=== PATIENT | female | born 1985 | race Two or more races ===

== ENCOUNTER 2019-06-23 09:00 | Emergency (ER) | payer SELFPAY ==
[2019-06-23 09:10] VITALS: BP 112/64
[2019-06-23 09:58] LABS: AMORPHOUS SEDIMENT,URINE TRACE /HPF; APPEARANCE,URINE SLIGHTLY-CLOUDY; BILIRUBIN,URINE NEGATIVE (NEGATIVE); COLOR,URINE YELLOW; GLUCOSE, URINE NEGATIVE (NEGATIVE); KETONES,URINE NEGATIVE (NEGATIVE); LEUKOCYTE ESTERASE,URINE LARGE (NEGATIVE); NITRITE,URINE NEGATIVE (NEGATIVE); PROTEIN,URINE NEGATIVE (NEGATIVE); UROBILINOGEN,URINE NEGATIVE mg/dL (<2.0)
--- NOTE | 2019-06-23 10:02 | ER Document Report ---
ED General - General Chief Complaint: Pain With Urination Stated Complaint: VAGINAL ITCHING Time Seen by Provider: 06/23/19 10:02 - HPI Patient complains to provider of: Burning with urination Notes: 34-year-old female 7 months presents with burning with urination foul- smelling urine. Patient denies fever chills back pain or any other symptoms. Pain is 6/10 burning in nature without radiation nothing makes it better or worse. - Related Data Allergies/Adverse Reactions: Penicillins Allergy (Verified 06/23/19 09:33) Past Medical History - General Last Menstrual Period: 12/02/2018 - Social History Smoking Status: Never Smoker Chew tobacco use (# tins/day): No Frequency of alcohol use: None Drug Abuse: None Family History: None Patient has suicidal ideation: No Patient has homicidal ideation: No Review of Systems - Review of Systems Notes: REVIEW OF SYSTEMS: CONSTITUTIONAL: -fevers, -chills EENT: -eye pain, -difficulty swallowing, -nasal congestion CARDIOVASCULAR: -chest pain, -syncope. RESPIRATORY: -cough, -SOB GASTROINTESTINAL: -abdominal pain, -nausea, -vomiting, -diarrhea GENITOURINARY: positive dysuria, -hematuria MUSCULOSKELETAL: -back pain, -neck pain SKIN: -rash or skin lesions. HEMATOLOGIC: -easy bruising or bleeding. LYMPHATIC: -swollen, enlarged glands. NEUROLOGICAL: -altered mental status or loss of consciousness, -headache, - neurologic symptoms PSYCHIATRIC: -anxiety, -depression. ALL OTHER SYSTEMS REVIEWED AND NEGATIVE. Physical Exam - Vital signs Vitals: Temp Pulse Resp BP Pulse Ox 98.0 F 87 16 112/64 100 06/23/19 09:10 06/23/19 09:10 06/23/19 09:10 06/23/19 09:10 06/23/19 09:10 - Notes Notes: PHYSICAL EXAMINATION: GENERAL: Well-appearing, well-nourished and in no acute distress. HEAD: Atraumatic, normocephalic. EYES: Pupils equal round and reactive to light, extraocular movements intact, sclera anicteric, conjunctiva are normal. ENT: nares patent, oropharynx clear without exudates. Moist mucous membranes. NECK: Normal range of motion, supple without lymphadenopathy LUNGS: Breath sounds clear to auscultation bilaterally and equal. No wheezes rales or rhonchi. HEART: Regular rate and rhythm without murmurs ABDOMEN: Soft, nontender, normoactive bowel sounds. No guarding, no rebound. No masses appreciated. EXTREMITIES: Normal range of motion, no pitting or edema. No cyanosis. NEUROLOGICAL: Cranial nerves grossly intact. Normal speech, normal gait. Normal sensory and motor exams. PSYCH: Normal mood, normal affect. SKIN: Warm, Dry, normal turgor, no rashes or lesions noted. Course - Re-evaluation Re-evalutation: 06/23/19 10:12 Pleasant 34-year-old female presents plaints. heart rate 142. Patient is well-appearing afebrile. Urine shows infection, will initiate Macrobid therapy. Discharged home follow- up with MATCH UP PERSON. Urine culture pending at this time. - Vital Signs Vital signs: Temp Pulse Resp BP Pulse Ox 98.0 F 87 16 112/64 100 06/23/19 09:10 06/23/19 09:10 06/23/19 09:10 06/23/19 09:10 06/23/19 09:10 - Laboratory Laboratory results interpreted by me: 06/23/19 09:44 Urine Blood SMALL H Ur Leukocyte Esterase LARGE H Discharge - Discharge Clinical Impression: UTI (urinary tract infection) Qualifiers: Urinary tract infection type: acute cystitis Hematuria presence: without hematuria Qualified Code(s): N30.00 - Acute cystitis without hematuria Condition: Stable Disposition: HOME, SELF-CARE Instructions: Urinary Tract Infection ([facility]) Additional Instructions: See your MATCH UP PERSON Prescriptions: Nitrofurantoin/Nitrofuran Mac [Macrobid 100 mg Capsule] 1 tab PO BID #20 capsule
== END 2019-06-23 10:35 | disposition home or self-care (01) ==
LOC: ER 09:00
DX: N30.00 Acute cystitis without hematuria (principal); L29.9 Pruritus, unspecified; Z88.0 Allergy status to penicillin
CPT/HCPCS: 81001; 87086; 87088

== ENCOUNTER 2019-07-04 13:46 | Outpatient (CLI) | payer SELFPAY ==
[2019-07-04] MEDS ORDERED: HYDROXYZINE PAMOATE 50 MG CAPSULE PO ONE (14:30)
[2019-07-04] MEDS ORDERED: HYDROXYZINE PAMOATE 50 MG CAPSULE ONE (14:33)
[2019-07-04 14:39] LABS: BACTERIA (WET MOUNT) 4+ BACTERIA SEEN; EPITHELIALS (WET MOUNT) 4+ EPITHELIALS SEEN; RBCS (WET MOUNT) 1+ RBCS SEEN; T.VAGINALIS (WET MOUNT) NO TRICHOMONAS SEEN; WBCS (WET MOUNT) 3+ WBCS SEEN; YEAST (WET MOUNT) NO YEAST SEEN
[2019-07-04 14:48] LABS: APPEARANCE,URINE SLIGHTLY-CLOUDY; BILIRUBIN,URINE NEGATIVE (NEGATIVE); COLOR,URINE YELLOW; GLUCOSE, URINE NEGATIVE (NEGATIVE); KETONES,URINE NEGATIVE (NEGATIVE); LEUKOCYTE ESTERASE,URINE NEGATIVE (NEGATIVE); NITRITE,URINE NEGATIVE (NEGATIVE); PROTEIN,URINE NEGATIVE (NEGATIVE); URINE SPECIFIC GRAVITY 1.012
[2019-07-04 14:57] LABS: URINE AMPHETAMINES SCREEN NEGATIVE; URINE BARBITURATES SCREEN NEGATIVE; URINE BENZODIAZEPINES SCREEN NEGATIVE; URINE COCAINE SCREEN NEGATIVE; URINE MARIJUANA (THC) SCREEN NEGATIVE; URINE METHADONE SCREEN NEGATIVE; URINE PHENCYCLIDINE SCREEN NEGATIVE
[2019-07-04 16:08] LABS: CHLAM PCR NOT DETECTED (NOT DETECT)
--- NOTE | 2019-07-04 18:05 | RADIOLOGY REPORT (SQ) ---
EXAM DESCRIPTION: U/S OB 14+ TA/1 GEST W/DOPPLER COMPLETED DATE/TIME: 07/04/2019 4:56 pm REASON FOR STUDY: limited PNC COMPARISON: None. TECHNIQUE: Static and Dynamic grayscale imaging performed of gravid uterus using transabdominal appr oach. Additional selected color Doppler and spectral images recorded. All stored on PACS. LIMITATIONS: None. FINDINGS: FETUSES SEEN:1 EGA: 29 weeks 6 days Calculated using BPD,FL,HC,AC documented on images. No discrepancy with clinica l dates. CARTER: 09/13/2019 EFW: 1402+/- 207 grams PERCENTILE: Not calculated. LV P: 8.2 cm PLACENTA: Anterior GRADE: I PRESENTATION: Cephalic. ANATOMY: HEART RATE: 147 beats per minute. FOUR CHAMBER HEART: Visualized. THREE VESSEL CORD: Yes. CORD INSERTION: Visualized. KIDNEYS AND BLADDER: Mild hydronephrosis. Dilated renal pelves bilaterally measures 5.1 mm. The uri nary bladder did not empty during the study. STOMACH: Visualized. Appears normal. SPINE: Normal as visualized. BRAIN AND LATERAL VENTRICLES: Visualized. Appear normal. OTHER: No other significant finding. MATERNAL ADNEXA: Maternal ovaries not visualized. CERVICAL LENGTH: 3.2 cm. Closed. OTHER: No other significant finding. IMPRESSION: LIVING INTRAUTERINE . ESTIMATED GESTATIONAL AGE 29 weeks 6 days. Bilateral hydronephrosis. The urinary bladder did not empty during the study. Trimester of : Third trimester - 28 weeks to delivery. TECHNICAL DOCUMENTATION: JOB ID: [id number] [employer]- All Rights Reserved Reading location - IP/workstation name: [email or web address]
== END 2019-07-04 16:50 | disposition home or self-care (01) ==
LOC: LC 13:46
PROVIDERS: ATTEND Obstetrics & Gynecology Gynecology
PROC: 4A1HXCZ Monitoring of Products of Conception, Cardiac Rate, External Approach (ICD-10-PCS; principal; 2019-07-04)
DX: O99.89 Other specified diseases and conditions complicating pregnancy, childbirth and the puerperium (principal); N13.30 Unspecified hydronephrosis; O09.33 Supervision of pregnancy with insufficient antenatal care, third trimester; Z3A.29 29 weeks gestation of pregnancy
CPT/HCPCS: 59899; 36415; 87210; 86762; 86592; 81001; 87340; 86701; 80307; 87491; 87591; 76805; 93976; J3490; 87086

== ENCOUNTER → 2019-07-07 | Outpatient (CLI) | payer SELFPAY ==
--- NOTE | 2019-07-07 15:29 | RADIOLOGY REPORT (SQ) ---
EXAM DESCRIPTION: U/S OB 14+ TRNABD 1GES W/O DOP COMPLETED DATE/TIME: 07/07/2019 2:39 pm REASON FOR STUDY: Z34.83 ENCOUNTER FOR SUPRVSN OF NORMAL , THIRD TRIMESTER Z34.83 ENCOUNTE R FOR SUPRVSN OF NORMAL , THIRD TRIM COMPARISON: 07/04/2019 OB ultrasound TECHNIQUE: Static and Dynamic grayscale imaging performed of gravid uterus using transabdominal appr oach. Additional selected color Doppler and spectral images recorded. All stored on PACS. LIMITATIONS: None. FINDINGS: FETUSES SEEN:1 EGA: 31 weeks 1 day Calculated using BPD,FL,HC,AC documented on images. CARTER: 09/07/2019 EFW: 1,750 grams PERCENTILE: Not calculated BRIANNA: 29 cm, polyhydramnios. Level 2 ultrasound recommended for followup PLACENTA: Anterior fundal GRADE: I PRESENTATION: Cephalic. ANATOMY: HEART RATE: 132 beats per minute. FOUR CHAMBER HEART: Visualized. THREE VESSEL CORD: Yes. CORD INSERTION: Visualized. KIDNEYS AND BLADDER: Prominence of the bilateral renal pelvises, AP diameter 6 mm. bladd er did not empty during the scan. Moderate bladder dilatation. STOMACH: Visualized. Appears normal. SPINE: Normal as visualized. BRAIN AND LATERAL VENTRICLES: Visualized. Appear normal. OTHER: No other significant finding. MATERNAL ADNEXA: Maternal ovaries not visualized. CERVICAL LENGTH: 3 cm in length Closed. OTHER: No other significant finding. IMPRESSION: LIVING INTRAUTERINE . ESTIMATED GESTATIONAL AGE 31 weeks 1 day There is polyhydramnios. Prominence of the renal pelvises and bladder. Level 2 ultra sound indicated for follow-up Trimester of : Third trimester - 28 weeks to delivery. TECHNICAL DOCUMENTATION: JOB ID: [id number] [employer]- All Rights Reserved Reading location - IP/workstation name: [email or web address]
== END ==
LOC: RAD 13:09
PROVIDERS: ATTEND Midwife
DX: O40.3XX0 Polyhydramnios, third trimester, not applicable or unspecified (principal); Z3A.31 31 weeks gestation of pregnancy
CPT/HCPCS: 76805

== ENCOUNTER 2019-09-06 11:40 | Outpatient (CLI) | payer OTHER ==
[2019-09-06 14:07] LABS: APPEARANCE,URINE SLIGHTLY-CLOUDY; BILIRUBIN,URINE NEGATIVE (NEGATIVE); COLOR,URINE YELLOW; GLUCOSE, URINE NEGATIVE (NEGATIVE); KETONES,URINE NEGATIVE (NEGATIVE); LEUKOCYTE ESTERASE,URINE SMALL (NEGATIVE); NITRITE,URINE NEGATIVE (NEGATIVE); PROTEIN,URINE NEGATIVE (NEGATIVE); UROBILINOGEN,URINE NEGATIVE mg/dL (<2.0)
[2019-09-06 14:25] LABS: URINE AMPHETAMINES SCREEN NEGATIVE; URINE BARBITURATES SCREEN NEGATIVE; URINE BENZODIAZEPINES SCREEN NEGATIVE; URINE COCAINE SCREEN NEGATIVE; URINE MARIJUANA (THC) SCREEN NEGATIVE; URINE METHADONE SCREEN NEGATIVE; URINE PHENCYCLIDINE SCREEN NEGATIVE
--- NOTE | 2019-09-06 15:45 | RADIOLOGY REPORT (SQ) ---
EXAM DESCRIPTION: U/S OB LIMITED COMPLETED DATE/TIME: 09/06/2019 3:35 pm REASON FOR STUDY: growth and eval of bladder COMPARISON: 07/07/2019 TECHNIQUE: Limited transabdominal grayscale ultrasound for evaluation of specific requested obstetri evgeny parameters. LIMITATIONS: None. FINDINGS: CERVICAL LENGTH: 2.8 cm. Closed. BRIANNA: 8.1 cm. FHR: 126 beats per minute. PRESENTATION: Cephalic. PLACENTA: Anterior location. ANATOMY: Not assessed OTHER: Estimated gestational age is 38 weeks 4 days. IMPRESSION: LIMITED OBSTETRICAL ULTRASOUND WITH MEASURED PARAMETERS DELINEATED ABOVE. Trimester of : Third trimester - 28 weeks to delivery. TECHNICAL DOCUMENTATION: JOB ID: [id number] [employer]- All Rights Reserved Reading location - IP/workstation name: [email or web address]
--- NOTE | 2019-09-06 15:47 | RADIOLOGY REPORT (SQ) ---
EXAM DESCRIPTION: U/S PROFILE W/O STRESS COMPLETED DATE/TIME: 09/06/2019 3:35 pm REASON FOR STUDY: iup polyhydramnious COMPARISON: None. TECHNIQUE: Limited zaragoza-scale realtime and static images of the fetus to measure specified parameter s. LIMITATIONS: None. FINDINGS: HEART RATE: 141 beats per minute. BRIANNA: 8.1 cm. BREATHING MOVEMENT: 2 points. MOVEMENT: 2 points. POSTURE AND TONE: 0 points. QUALITATIVE BRIANNA: 2 points. OTHER: No other significant finding. IMPRESSION: BIOPHYSICAL PROFILE: 03/12. Trimester of : Third - 28 weeks to delivery COMMENT: BREATHING MOVEMENTS: 2 POINTS: PRESENT 0 POINTS: ABSENT MOTION: 2 POINTS: PRESENT 0 POINTS: ABSENT TONE: 2 POINTS: PRESENT 0 POINTS: ABSENT AMNIOTIC FLUID VOLUME: 2 POINTS: LARGEST POCKET GREATER THAN 2 CM DEPTH. 0 POINTS: NO POCKET OF 2 CM. TECHNICAL DOCUMENTATION: JOB ID: [id number] [employer]- All Rights Reserved Reading location - IP/workstation name: [email or web address]
--- NOTE | 2019-09-06 18:53 | Non Stress Test Report ---
Non Stress Test Datetime Report Generated by CPN: 09/06/2019 18:53 DEMOGRAPHIC EGA NST: 39.0 INDICATION Indication for Study (NST) Other: IUP @ 39.0 MONITORING Monitor Explained: Monitor Explained; Test Explained; Patient Verbalized Understanding Time on Monitor: 09/06/2019 12:20 Time off Monitor: 09/06/2019 14:15 NST Duration: 115 NST INTERVENTIONS NST Interventions: PO Hydration; Reposition Patient Physician Notified NST: Dr. Bailon BABY A: [id number] BABY A Movement : Present Contraction Frequency : 0 FHR Baseline : 120 Accelerations : 15X15 Variability : Moderate 6-25bpm NST Review: Meets Criteria for Reactive NST NST Review and Verified By : Arlyn camp RNC NST Results: Reactive NST REPORT Report Trigger: Send Report
== END 2019-09-06 17:53 | disposition home or self-care (01) ==
LOC: LC 11:40
PROVIDERS: ATTEND Obstetrics & Gynecology
PROC: 4A1HXCZ Monitoring of Products of Conception, Cardiac Rate, External Approach (ICD-10-PCS; principal; 2019-09-06)
DX: O47.1 False labor at or after 37 completed weeks of gestation (principal); O40.3XX0 Polyhydramnios, third trimester, not applicable or unspecified; O09.523 Supervision of elderly multigravida, third trimester; Z3A.39 39 weeks gestation of pregnancy
CPT/HCPCS: 59025; 76815; 76819; 80307; 81001

== ENCOUNTER 2019-09-14 05:14 | Inpatient (IN) | payer MEDICAID, OTHER ==
[2019-09-14] MEDS ORDERED: OXYTOCIN 10 UNIT/ML VIAL ONE (05:55)
[2019-09-14] MEDS ORDERED: MISOPROSTOL 0.2 MG TABLET ONE (05:55)
[2019-09-14] MEDS ORDERED: OXYTOCIN/NORMAL SALINE 20 UNIT/1,000 ML RTUINJ ONE (05:56)
[2019-09-14] MEDS ORDERED: LIDOCAINE 1% INJ-PF (10 MG/ML) 30 ML SDV ONE (05:56)
--- NOTE | 2019-09-14 06:37 | Admission Physical ---
Datetime Report Generated by CPN: 09/14/2019 06:36 CURRENT ADMISSION Chief Complaint: Uterine Contractions Admit Impression : Term, Intrauterine ; Active Labor Admit Plan: Admit to Unit; Initiate Labor Protocol ALLERGIES Medication Allergies: Yes Medication Allergies: Penicillins (09/06/2019) Latex: No Latex Allergies OBSTETRICAL HISTORY EDC: 09/13/2019 00:00 : 3 Para: 2 Term: 2 : 0 SAB: 0 IAB: 0 Ectopic: 0 Livin Cesareans: 0 VBACs: 0 Multiple Births: 0 Gestational Diabetes: No Rh Sensitization: No Incompetent Cervix: No PATTI: No Infertility: No ART Treatment: No Uterine Anomaly: No IUGR: No Hx Previous C/S: No Macrosomia: No Hx Loss/Stillborn: No PIH: No Hx : No Placenta Previa/Abruption: No Depression/PP Depression: Yes PTL/PROM: No Post Hemorrhage: No Current Procedures: Ultrasound; NST Obstetrical History Comments: G1- G2- G3- current LPNC Polyhydramnios, bladder dilation SEE RECORDS Alcohol: No Marijuana : No Cocaine: No Other Illicit Drugs: No Cigarettes: Never Smoker. [id number] MEDICAL HISTORY Diabetes: No Blood Transfusion: No Pulmonary Disease (Asthma, TB): No Breast Disease: No Hypertension: No Android Developer Surgery: No Heart Disease: No Hosp/Surgery: Yes Autoimmune Disorder: No Anesthetic Complications: No Kidney Disease: Yes Abnormal Pap Smear: No Neuro/Epilepsy: No Psychiatric Disorders: No Other Medical Diseases: No Hepatitis/Liver Disease: No Significant Family History: No Varicosities/Phlebitis: No Trauma/Violence : No Thyroid Dysfunction: No Medical History Comments: Gastritis, issues with colon IBS CHILDBIRTH INFECTIOUS HISTORY Gonorrhea: No Genital Herpes: No Chlamydia: No Tuberculosis: No Syphilis: No Hepatitis: No HIV/AIDS Exposure: No Rash or Viral Illness: No HPV: No PHYSICAL EXAM General: Normal HEENT: Normal Neurologic: Normal Thyroid: Normal Heart: Normal Lungs: Normal Breast: Normal Back: Normal Abdomen: Normal Genitourinary Exam: Normal Extremities: Normal DTRs: Normal Pelvic Type: Adequate Vital Signs: Reviewed VAGINAL EXAM Dilatation: 8 Effacement: 90 Station: -2 Contraction Comments: contractions Q 2-3 MEMBRANES Pooling: Negative Membranes: Intact FETUS A EGA: 40.1 Monitoring: External US FHR- Baseline: 130 Variability: Moderate 6-25bpm Accelerations: 15X15 Decelerations: None FHR Category: Category I Presentation: Vertex Admit Comment: at 40.1 wks EGA in acitve labor -Admit to LDR -IVF and NPO -CEFM and toco -GBS negative -Hx prior x2 -Anticipate INFORMED CONSENT Informed Consent Obtained: Vaginal Delivery; Section Delivery; Vacuum/Forceps Assist; Risks, Benefits and Alternatives Discussed Signature: with User ID: [email or web address] : with User ID: [email or web address]
[2019-09-14] MEDS ORDERED: DIPHENHYDRAMINE HCL 50 MG/ML VIAL ONE (06:43)
[2019-09-14 06:44] LABS: APPEARANCE,URINE CLOUDY; BILIRUBIN,URINE NEGATIVE (NEGATIVE); COLOR,URINE YELLOW; GLUCOSE, URINE NEGATIVE (NEGATIVE); KETONES,URINE NEGATIVE (NEGATIVE); LEUKOCYTE ESTERASE,URINE LARGE (NEGATIVE); NITRITE,URINE NEGATIVE (NEGATIVE); PROTEIN,URINE NEGATIVE (NEGATIVE); URINE SPECIFIC GRAVITY 1.008; UROBILINOGEN,URINE NEGATIVE mg/dL (<2.0)
[2019-09-14 06:59] LABS: URINE AMPHETAMINES SCREEN NEGATIVE; URINE BARBITURATES SCREEN NEGATIVE; URINE BENZODIAZEPINES SCREEN NEGATIVE; URINE COCAINE SCREEN NEGATIVE; URINE MARIJUANA (THC) SCREEN NEGATIVE; URINE METHADONE SCREEN NEGATIVE; URINE PHENCYCLIDINE SCREEN NEGATIVE
[2019-09-14] MEDS ORDERED: PSEUDOEPHEDRINE HCL 30 MG TABLET PO PRN (08:02)
[2019-09-14] MEDS ORDERED: PROMETHAZINE HCL INJ 25 MG/1 ML VIAL IV PRN (08:02)
[2019-09-14] MEDS ORDERED: MEASLES,MUMPS&RUBELLA VACC/PF 0.5 ML VIAL SUBCUT PRN (08:02)
[2019-09-14] MEDS ORDERED: NA PHOS,M-B/NA PHOS,DI-BA (ADULT) 133 ML ENEMA PR PRN (08:02)
[2019-09-14] MEDS ORDERED: DIPHENHYDRAMINE HCL 25 MG CAPSULE PO PRN (08:02)
[2019-09-14] MEDS ORDERED: BENZOCAINE/MENTHOL AEROSOL SPRAY 56 ML TOP PRN (08:02)
[2019-09-14] MEDS ORDERED: MAGNESIUM HYDROXIDE SUSP 30 ML UDCUP PO PRN (08:02)
[2019-09-14] MEDS ORDERED: PROMETHAZINE HCL 25 MG SUPP.RECT PR PRN (08:02)
[2019-09-14] MEDS ORDERED: HYDROCODONE/ACETAMINOPHEN 5-325 MG TABLET PO PRN (08:02)
[2019-09-14] MEDS ORDERED: DIBUCAINE 1% OINTMENT 56 GM TP PRN (08:02)
[2019-09-14] MEDS ORDERED: DIPH/PERTUSS(ACELL)/TETANUS VAC/PF 0.5 ML SYR (>=10YO) IM PRN (08:02)
[2019-09-14] MEDS ORDERED: OXYTOCIN/NORMAL SALINE 20 UNIT/1,000 ML RTUINJ IV PRN (08:02)
[2019-09-14] MEDS ORDERED: ACETAMINOPHEN 650 MG SUPP.RECT PR PRN (08:02)
[2019-09-14] MEDS ORDERED: GLYCERIN/WITCH HAZEL LEAF 1 EACH MED..WIPE TP PRN (08:02)
[2019-09-14] MEDS ORDERED: PROMETHAZINE HCL 25 MG TABLET PO PRN (08:02)
[2019-09-14 08:10] LABS: ABSOLUTE LYMPHOCYTES (AUTO) 1.6 10^3/uL (0.5-4.7); ABSOLUTE MONOCYTES (AUTO) 0.6 10^3/uL (0.1-1.4); ABSOLUTE NEUT (AUTO) 7.3 10^3/uL (1.7-8.2); BASOPHILS % (AUTO) 0.3 % (0-2); EOSINOPHILS % (AUTO) 0.5 % (0-6); HEMATOCRIT 32.6 % (36.0-47.0); HEMOGLOBIN 10.8 g/dL (12.0-15.5); LYMPHOCYTES % (AUTO) 16.6 % (13-45); MEAN CORPUSCULAR HEMOGLOBIN 26.7 pg (27.0-33.4); MEAN CORPUSCULAR HGB CONC 33.1 g/dL (32.0-36.0); MEAN CORPUSCULAR VOLUME 81 fl (80-97); MONOCYTES % (AUTO) 5.9 % (3-13); PLATELET COUNT 229 10^3/uL (150-450); RED BLOOD COUNT 4.04 10^6/uL (3.72-5.28); RED CELL DISTRIBUTION WIDTH 14.9 % (11.5-14.0); SEGMENTED NEUTROPHILS % (AUTO) 76.7 % (42-78); TOTAL CELLS COUNTED % (AUTO) 100 %; WHITE BLOOD COUNT 9.5 10^3/uL (4.0-10.5)
[2019-09-14] MEDS ORDERED: IBUPROFEN 800 MG TABLET ONE (08:47)
[2019-09-14] MEDS: IBUPROFEN 800 MG TABLET PO SCH ×3 (08:48→22:13)
--- NOTE | 2019-09-14 10:24 | Delivery Summary ---
Del Sum A-C Datetime Report Generated by CPN: 09/14/2019 10:24 DELIVERY PERSONNEL DELIVERY PERSONNEL: [id number] Delivery Doctor:: Vi Bailon MD Labor and Delivery Nurse:: Vangie Amin RN Nursery Nurse:: Chastity Cortez RN Infectious Waste Technician/ROTARY DRIER OPERATOR: Elo Green, ST MATERNAL INFORMATION Delivery Anesthesia: None Medications After Delivery: Pitocin Bolus-Please Comment Meds After Delivery Comment: Pitocin 20 units/ 1000 ml NSS Maternal Complications: Precipitous Labor (<3hrs) Provider Comments: After delivery of the head, a tight nuchal cord was noted but loosened enough to reduce. The shoulders and rest of the body then followed easily. Cord clamping delayed for 30 seconds as was vigorous. Mother and both stable. LABOR SUMMARY EDC: 09/13/2019 00:00 No. Babies in Womb: 1 Attempted: No Labor Anesthesia: None LABOR INFORMATION Reason for Induction: Not Applicable Onset of Labor: 09/14/2019 05:30 Complete Dilatation: 09/14/2019 07:00 Oxytocin: N/A Group B Beta Strep: Negative Antibiotics # of Doses: 0 Antibiotics Time of Last Dose: N/A Name of Antibiotic Given: N/A Steroids Given: None Reason Steroids Not Administered: Not Applicable MEMBRANES Membranes Rupture Method: Artificial Rupture of Membranes: 09/14/2019 06:03 Length of Rupture (hr): 1.00 Amniotic Fluid Color: Clear Amniotic Fluid Amount: Moderate Amniotic Fluid Odor: Normal STAGES OF LABOR Stage 1 hr: 1 Stage 1 min: 30 Stage 2 hr: 0 Stage 2 min: 3 Stage 3 hr: 0 Stage 3 min: 5 Total Time in Labor hr: 1 Total Time in Labor min: 38 VAGINAL DELIVERY Episiotomy: None Laceration #1: Perineal Laceration Extension #1: First Degree Laceration Repair: Yes Laceration Repair Note: Repaired in layered closure with 2-0 chromic Sponge Count Correct: Yes Sharps Count Correct: Yes CSECTION DELIVERY Primary Indication: N/A Secondary Indication: N/A CSection Incidence: N/A Labor: N/A Elective: N/A CSection Incision: N/A BABY A INFORMATION Delivery Date/Time: 09/14/2019 07:03 Method of Delivery: Vaginal Born in Route : No : N/A Forceps: N/A Vacuum Extraction: N/A Shoulder Dystocia : No PRESENTATION/POSITION BABY A Presentation: Cephalic Cephalic Presentation: Vertex Breech Presentation: N/A PLACENTA INFORMATION BABY A Placenta Delivery Time : 09/14/2019 07:08 Placenta Method of Delivery: Spontaneous Placenta Status: Delivered SCORES BABY A Heart Rate 1 min: >100 bpm Resp Effort 1 min: Good Cry Reflex Irritability 1 min: Cough or Sneeze or Pulls Away Muscle Tone 1 min: Active Motion Color 1 min: Blue/Pale Resuscitation Effort 1 min: Tactile Stimulation SCORE 1 MIN: 8 Heart Rate 5 min: >100 bpm Resp Effort 5 min: Good Cry Reflex Irritability 5 min: Cough or Sneeze or Pulls Away Muscle Tone 5 min: Active Motion Color 5 min: Body [place], Extremities Blue Resuscitation Effort 5 min: Tactile Stimulation SCORE 5 MIN: 9 INFORMATION BABY A Gestational Age at Delivery: 40.1 Gestational Status: Full Term- 39- 40.6 Weeks Infant Outcome : Liveborn Condition : Stable Sex: Female IDENTIFICATION BABY A Verification Date/Time: 09/14/2019 07:20 ID Band Number: [id number] Mother's Name Verified: Yes RN Verifying : , RN and R.Joy, RN CORD INFORMATION BABY A No. Cord Vessels: 3 Nuchal Cord : Around Neck x1, Tight Cord Blood Taken: Yes-For Eval (Mom's Blood Type - or O+) ASSESSMENT BABY A Infant Complications: None Physical Findings at Delivery: Within Normal Limits Respirations: Appears Normal Skin to Skin: Yes Crumb Packer/ALS Called : No Infant Care By: MALGORZATA Suero Transferred To: Remains with Mother SIGNATURES Signature: with User ID: [email or web address] : with User ID: [email or web address]
[2019-09-14] MEDS: FERROUS SULFATE 325 MG TABLET PO SCH ×2 (11:00→18:30)
[2019-09-14] MEDS: SENNOSIDES/DOCUSATE 8.6-50 MG 1 EACH TABLET PO SCH (11:00)
[2019-09-14] MEDS: FAMOTIDINE 20 MG TABLET PO SCH ×2 (11:00→22:13)
[2019-09-14] MEDS: PRENATAL VITAMIN W DHA CAPSULE PO SCH (11:00)
[2019-09-14] MEDS: DOCUSATE SODIUM 100 MG CAPSULE PO SCH ×2 (11:00→18:30)
--- NOTE | 2019-09-14 14:51 | PDOC PROGRESS REPORT ---
Subjective-OB Progress Note for:: 09/14/19 Subjective: 34yo G3 now P3 s/p delivery day. Pt. is , reports pain is well controlled with medication. Ambulating and voiding without difficulty. No concerns Physical Exam (OB) Vital Signs: Temp Pulse Resp BP Pulse Ox 98.8 F 62 16 122/67 99 09/14/19 10:20 09/14/19 10:20 09/14/19 10:20 09/14/19 10:20 09/14/19 10:20 - General General Appearance: Appears well In distress: None - Episiotomy/Laceration Site Condition: Well Approximated, Edematous - Lochia Lochia Amount: Moderate 25-50 ml - Abdomen Description: Firm, Soft - Respiratory Respiratory Status: No respiratory distress - Neurological Cognition: Normal Orientation: AAOx4 - Psychological Associated symptoms: Normal affect, Normal mood Objective-Diagnostic Laboratory: 09/14/19 07:26 09/14/19 09/14/19 09/14/19 05:25 07:26 07:26 WBC 9.5 RBC 4.04 Hgb 10.8 L Hct 32.6 L MCV 81 MCH 26.7 L MCHC 33.1 RDW 14.9 H Plt Count 229 Seg Neutrophils % 76.7 Urine Color YELLOW Urine Appearance CLOUDY Urine pH 6.0 Ur Specific [place] 1.008 Urine Protein NEGATIVE Urine Glucose (UA) NEGATIVE Urine Ketones NEGATIVE Urine Blood MODERATE H Urine Nitrite NEGATIVE Ur Leukocyte Esterase LARGE H Blood Type O POSITIVE Antibody Screen NEGATIVE Assessment and Plan(PN) - Assessment and Plan (1) Vaginal delivery Is this a current diagnosis for this admission?: Yes Plan: Routine pp care (2) Anemia complicating , third trimester Is this a current diagnosis for this admission?: Yes Plan: increase dietary iron and FeSO4 BID (3) Perineal laceration during delivery Qualifiers: Perineal laceration degree: first degree Qualified Code(s): O70.0 - First degree perineal laceration during delivery Is this a current diagnosis for this admission?: Yes Plan: continue to monitor for s/s of infection - Time Spent with Patient Time with patient: Less than 15 minutes Medications reviewed and adjusted accordingly: Yes - Disposition Anticipated Discharge: Home Within: within 48 hours
[2019-09-14] MEDS ORDERED: ONDANSETRON HCL INJ/PF 4 MG/2 ML SDV IV ONE (16:45)
[2019-09-15] MEDS: IBUPROFEN 800 MG TABLET PO SCH ×3 (05:59→22:40)
[2019-09-15 06:33] LABS: HEMATOCRIT 31.3 % (36.0-47.0); HEMOGLOBIN 10.4 g/dL (12.0-15.5); MEAN CORPUSCULAR HEMOGLOBIN 26.7 pg (27.0-33.4); MEAN CORPUSCULAR HGB CONC 33.3 g/dL (32.0-36.0); MEAN CORPUSCULAR VOLUME 80 fl (80-97); PLATELET COUNT 238 10^3/uL (150-450); RED CELL DISTRIBUTION WIDTH 14.9 % (11.5-14.0); WHITE BLOOD COUNT 11.3 10^3/uL (4.0-10.5)
[2019-09-15] MEDS: SENNOSIDES/DOCUSATE 8.6-50 MG 1 EACH TABLET PO SCH (09:22)
[2019-09-15] MEDS: FERROUS SULFATE 325 MG TABLET PO SCH ×2 (09:22→18:13)
[2019-09-15] MEDS: FAMOTIDINE 20 MG TABLET PO SCH ×2 (09:22→22:40)
[2019-09-15] MEDS: DOCUSATE SODIUM 100 MG CAPSULE PO SCH ×2 (09:22→18:13)
[2019-09-15] MEDS: PRENATAL VITAMIN W DHA CAPSULE PO SCH (09:22)
--- NOTE | 2019-09-15 10:09 | PDOC PROGRESS REPORT ---
Subjective-OB Progress Note for:: 09/15/19 Physical Exam (OB) Vital Signs: Temp Pulse Resp BP Pulse Ox 97.8 F 62 18 106/60 100 09/15/19 08:01 09/15/19 08:01 09/15/19 08:01 09/15/19 08:01 09/15/19 08:01 Intake & Output 09/14/19 09/15/19 09/16/19 06:59 06:59 06:59 Intake Total 240 Balance 240 - PIH/Pre-Eclampsia Clonus: Negative Headache: Absent Epigastric Pain: Yes Visual Changes: Yes - Lochia Lochia Amount: Scant < 10 ml Lochia Color: Rubra/Red - Abdomen Description: Soft Hernia Present: No Bowel Sounds: Normoactive Flatus Presence: Present Stool: No Fundal Description: Firm, Midline Fundal Height: u/u - u/2 Objective-Diagnostic Laboratory: 09/15/19 06:06 09/15/19 06:06 WBC 11.3 H RBC 3.90 Hgb 10.4 L Hct 31.3 L MCV 80 MCH 26.7 L MCHC 33.3 RDW 14.9 H Plt Count 238 Assessment and Plan(PN) - Time Spent with Patient Medications reviewed and adjusted accordingly: Yes - Disposition Anticipated Discharge: Home
[2019-09-16] MEDS: IBUPROFEN 800 MG TABLET PO SCH (05:56)
[2019-09-16 08:27] VITALS: BP 126/66
--- NOTE | 2019-09-16 09:12 | PDOC PROGRESS REPORT ---
Subjective-OB Progress Note for:: 09/16/19 Subjective: doing well, no c/o, speaking with ruben like device, , voiding Physical Exam (OB) Vital Signs: Temp Pulse Resp BP Pulse Ox 98.7 F 67 14 126/66 H 99 09/16/19 08:26 09/16/19 08:26 09/16/19 08:26 09/16/19 08:26 09/16/19 08:26 Intake & Output 09/15/19 09/16/19 09/17/19 06:59 06:59 06:59 Intake Total 240 Balance 240 - PIH/Pre-Eclampsia Clonus: Negative Headache: Absent Epigastric Pain: No Visual Changes: No - Lochia Lochia Amount: Small 10-25 ml Lochia Color: Rubra/Red - Abdomen Description: Soft, Round Hernia Present: No Fundal Description: Firm, Midline Fundal Height: u/u - u/2 Objective-Diagnostic Laboratory: 09/15/19 06:06 Assessment and Plan(PN) - Assessment and Plan (1) Precipitous delivery Is this a current diagnosis for this admission?: Yes (2) Insufficient antepartum care Is this a current diagnosis for this admission?: Yes (3) Vaginal delivery Is this a current diagnosis for this admission?: Yes (4) Anemia complicating , third trimester Is this a current diagnosis for this admission?: Yes (5) Perineal laceration during delivery Qualifiers: Perineal laceration degree: first degree Qualified Code(s): O70.0 - First degree perineal laceration during delivery Is this a current diagnosis for this admission?: Yes - Time Spent with Patient Time with patient: Less than 15 minutes Medications reviewed and adjusted accordingly: Yes - Disposition Anticipated Discharge: Home Within: within 24 hours
--- NOTE | 2019-09-16 09:17 | PDOC DISCHARGE SUMMARY ---
Impression - Admit/DC Date/PCP Admission Date/Primary Care Provider: 09/14/19 05:44 JESS ARMIJO MD Discharge Date: 09/16/19 - Discharge Diagnosis (1) Precipitous delivery Is this a current diagnosis for this admission?: Yes (2) Insufficient antepartum care Is this a current diagnosis for this admission?: Yes (3) Vaginal delivery Is this a current diagnosis for this admission?: Yes (4) Anemia complicating , third trimester Is this a current diagnosis for this admission?: Yes (5) Perineal laceration during delivery Is this a current diagnosis for this admission?: Yes - Additional Information Resuscitation Status: Full Code Discharge Diet: As Tolerated, Regular Discharge Activity: Activity As Tolerated, No Lifting Over 10 Pounds, No Lifting/Push/Pulling, Pelvic Rest, No tub bath Referrals: JESS ARMIJO MD [Primary Care Provider] - (RTC 4 weeks) Home Medications: Vits96/Iron Fum/Folic [ Tablet] 1 tab PO DAILY 07/04/19 HPI Gestational Age: 40.1 Reason(s) for Admission: Onset of Labor Procedures: NST, Ultrasound Intrapartum Procedure(s): Spontaneous Vaginal Delivery Complication(s): Laceration-Perineal Laceration-Degree: 1st Hospital Course Hospital Course: routine Results Laboratory Results: WBC 11.3 10^3/uL (4.0-10.5) H 09/15/19 06:06 RBC 3.90 10^6/uL (3.72-5.28) 09/15/19 06:06 Hgb 10.4 g/dL (12.0-15.5) L 09/15/19 06:06 Hct 31.3 % (36.0-47.0) L 09/15/19 06:06 MCV 80 fl (80-97) 09/15/19 06:06 MCH 26.7 pg (27.0-33.4) L 09/15/19 06:06 MCHC 33.3 g/dL (32.0-36.0) 09/15/19 06:06 RDW 14.9 % (11.5-14.0) H 09/15/19 06:06 Plt Count 238 10^3/uL (150-450) 09/15/19 06:06 Lymph % (Auto) 16.6 % (13-45) 09/14/19 07:26 [place] % (Auto) 5.9 % (3-13) 09/14/19 07:26 Eos % (Auto) 0.5 % (0-6) 09/14/19 07:26 Baso % (Auto) 0.3 % (0-2) 09/14/19 07:26 Absolute Neuts (auto) 7.3 10^3/uL (1.7-8.2) 09/14/19 07:26 Absolute Lymphs (auto) 1.6 10^3/uL (0.5-4.7) 09/14/19 07:26 Absolute Monos (auto) 0.6 10^3/uL (0.1-1.4) 09/14/19 07:26 Absolute Eos (auto) 0.0 10^3/uL (0.0-0.6) 09/14/19 07:26 Absolute Basos (auto) 0.0 10^3/uL (0.0-0.2) 09/14/19 07:26 Seg Neutrophils % 76.7 % (42-78) 09/14/19 07:26 Urine Color YELLOW 09/14/19 05:25 Urine Appearance CLOUDY 09/14/19 05:25 Urine pH 6.0 (5.0-9.0) 09/14/19 05:25 Ur Specific [place] 1.008 09/14/19 05:25 Urine Protein NEGATIVE mg/dL (NEGATIVE) 09/14/19 05:25 Urine Glucose (UA) NEGATIVE mg/dL (NEGATIVE) 09/14/19 05:25 Urine Ketones NEGATIVE mg/dL (NEGATIVE) 09/14/19 05:25 Urine Blood MODERATE (NEGATIVE) H 09/14/19 05:25 Urine Nitrite NEGATIVE (NEGATIVE) 09/14/19 05:25 Urine Bilirubin NEGATIVE (NEGATIVE) 09/14/19 05:25 Urine Urobilinogen NEGATIVE mg/dL (<2.0) 09/14/19 05:25 Ur Leukocyte Esterase LARGE (NEGATIVE) H 09/14/19 05:25 Urine Ascorbic Acid NEGATIVE (NEGATIVE) 09/14/19 05:25 Urine Opiates Screen NEGATIVE 09/14/19 05:25 Urine Methadone Screen NEGATIVE 09/14/19 05:25 Ur Barbiturates Screen NEGATIVE 09/14/19 05:25 Ur Phencyclidine Scrn NEGATIVE 09/14/19 05:25 Ur Amphetamines Screen NEGATIVE 09/14/19 05:25 U Benzodiazepines Scrn NEGATIVE 09/14/19 05:25 Urine Cocaine Screen NEGATIVE 09/14/19 05:25 U Marijuana (THC) Screen NEGATIVE 09/14/19 05:25 RPR NONREACTIVE (NONREACTIVE) 09/14/19 07:26 Blood Type O POSITIVE 09/14/19 07:26 Antibody Screen NEGATIVE 09/14/19 07:26 Plan Health Concerns: routine Plan of Treatment: home with baby Goals: no complications Time Spent: Less than 30 Minutes
[2019-09-16] MEDS: FERROUS SULFATE 325 MG TABLET PO SCH (10:03)
[2019-09-16] MEDS: DOCUSATE SODIUM 100 MG CAPSULE PO SCH (10:03)
[2019-09-16] MEDS: PRENATAL VITAMIN W DHA CAPSULE PO SCH (10:03)
[2019-09-16] MEDS: SENNOSIDES/DOCUSATE 8.6-50 MG 1 EACH TABLET PO SCH (10:03)
[2019-09-16] MEDS: FAMOTIDINE 20 MG TABLET PO SCH (10:04)
--- NOTE | 2019-09-16 13:07 | PDOC PROGRESS REPORT ---
Subjective-OB Progress Note for:: 09/16/19 Subjective: pt took hr 10 am meds and felt nauseated nd started shaking, declined medication Physical Exam (OB) Vital Signs: Temp Pulse Resp BP Pulse Ox 98.7 F 67 14 126/66 H 99 09/16/19 10:00 09/16/19 10:00 09/16/19 10:00 09/16/19 10:00 09/16/19 10:00 Intake & Output 09/15/19 09/16/19 09/17/19 06:59 06:59 06:59 Intake Total 240 Balance 240 - PIH/Pre-Eclampsia Clonus: Negative Headache: Absent Epigastric Pain: No Visual Changes: No - Lochia Lochia Amount: Small 10-25 ml Lochia Color: Rubra/Red - Abdomen Description: Soft, Round Hernia Present: No Fundal Description: Firm, Midline Fundal Height: u/u - u/2 Objective-Diagnostic Laboratory: 09/15/19 06:06 Assessment and Plan(PN) - Assessment and Plan (1) Precipitous delivery Is this a current diagnosis for this admission?: Yes (2) Insufficient antepartum care Is this a current diagnosis for this admission?: Yes (3) Vaginal delivery Is this a current diagnosis for this admission?: Yes (4) Anemia complicating , third trimester Is this a current diagnosis for this admission?: Yes (5) Perineal laceration during delivery Qualifiers: Perineal laceration degree: first degree Qualified Code(s): O70.0 - First degree perineal laceration during delivery Is this a current diagnosis for this admission?: Yes - Time Spent with Patient Medications reviewed and adjusted accordingly: Yes - Disposition Anticipated Discharge: Home Within: within 24 hours - cotinue to watch patient, appears stable, resting in bed, talking on phone, alert, no chest pain, SOB,
== END 2019-09-16 17:10 | disposition home or self-care (01) | DRG 807 ==
LOC: LC 05:14 → LR 05:44 → 2S 10:10 → UNDODISIN 09-16 15:21
PROVIDERS: ADMIT Obstetrics & Gynecology; ATTEND Obstetrics & Gynecology
PROC: 10E0XZZ Delivery of Products of Conception, External Approach (ICD-10-PCS; principal; 2019-09-14)
PROC: 0HQ9XZZ Repair Perineum Skin, External Approach (ICD-10-PCS; 2019-09-14)
PROC: 3E0234Z Introduction of Serum, Toxoid and Vaccine into Muscle, Percutaneous Approach (ICD-10-PCS; 2019-09-16)
DX: O62.3 Precipitate labor (principal); Z37.0 Single live birth; O69.1XX0 Labor and delivery complicated by cord around neck, with compression, not applicable or unspecified; O70.0 First degree perineal laceration during delivery; O99.02 Anemia complicating childbirth; D64.9 Anemia, unspecified; Z3A.40 40 weeks gestation of pregnancy; Z88.0 Allergy status to penicillin; Z23 Encounter for immunization
CPT/HCPCS: 36415; 80307; 81005; 85025; 85027; 86592; 86850; 86900; 86901; 90715; J1200; J2590; J3490

== ENCOUNTER 2020-03-26 | Emergency (ER) | payer MEDICAID, OTHER ==
--- NOTE | 2020-03-26 00:48 | ER Document Report ---
ED Medical Screen (RME) - General Stated Complaint: STOMACH PAIN,VOMITING,SHAKY Time Seen by Provider: 03/26/20 00:39 Primary Care Provider: JESS ARMIJO MD [Primary Care Provider] - Follow up as needed Mode of Arrival: Ambulatory Information source: Patient Notes: Patient is a 35-year-old female presenting to the emergency department with multiple complaints today. Patient has recently traveled to [facility] in the last week. She is complaining of chest pain, nausea, vomiting, diarrhea and abdominal pain. She denies any shortness of breath. She reports chills but denies fever. She denies any sick contacts, and denies any known exposure to any COVID-19 positive persons however again she has recently traveled through multiple states via [place]. Patient speaks Japanese only, [employer] translation system will be necessary. Patient is alert, oriented, all vital signs are within normal limits. There is no acute distress noted. I have greeted and performed a rapid initial assessment of this patient. A comprehensive ED assessment and evaluation of the patient, analysis of test results and completion of the medical decision making process will be conducted by additional ED providers. I have specifically instructed the patient or family members with the patient to immediately return to any nursing staff should anything change in the patient's condition or with their chief complaint. TRAVEL OUTSIDE OF THE [place] IN LAST 30 DAYS: No - Related Data Allergies/Adverse Reactions: Penicillins Allergy (Verified 09/06/19 13:19) Physical Exam - Vital signs Vitals: Temp Pulse Resp BP Pulse Ox 98.5 F 74 16 119/73 97 03/26/20 00:07 03/26/20 00:07 03/26/20 00:07 03/26/20 00:07 03/26/20 00:07 Course - Vital Signs Vital signs: Temp Pulse Resp BP Pulse Ox 98.5 F 74 16 119/73 97 03/26/20 00:07 03/26/20 00:07 03/26/20 00:07 03/26/20 00:07 03/26/20 00:07 Doctor's Discharge - Discharge Referrals: JESS ARMIJO MD [Primary Care Provider] - Follow up as needed
[2020-03-26] MEDS ORDERED: NORMAL SALINE 1000 ML 1,000 ML IV ONE (00:50)
[2020-03-26] MEDS ORDERED: ONDANSETRON HCL INJ/PF 4 MG/2 ML SDV IV ONE (00:50)
[2020-03-26] MEDS ORDERED: KETOROLAC TROMETHAMINE INJ/PF 30 MG/1 ML SDV IV ONE (01:49)
[2020-03-26 02:06] LABS: ABSOLUTE LYMPHOCYTES (AUTO) 1.4 10^3/uL (0.5-4.7); ABSOLUTE MONOCYTES (AUTO) 0.6 10^3/uL (0.1-1.4); ABSOLUTE NEUT (AUTO) 9.7 10^3/uL (1.7-8.2); BASOPHILS % (AUTO) 0.2 % (0-2); EOSINOPHILS % (AUTO) 0.3 % (0-6); HEMATOCRIT 37.6 % (36.0-47.0); HEMOGLOBIN 12.6 g/dL (12.0-15.5); LYMPHOCYTES % (AUTO) 11.9 % (13-45); MEAN CORPUSCULAR HEMOGLOBIN 28.3 pg (27.0-33.4); MEAN CORPUSCULAR HGB CONC 33.4 g/dL (32.0-36.0); MEAN CORPUSCULAR VOLUME 85 fl (80-97); MONOCYTES % (AUTO) 4.9 % (3-13); PLATELET COUNT 244 10^3/uL (150-450); RED BLOOD COUNT 4.43 10^6/uL (3.72-5.28); RED CELL DISTRIBUTION WIDTH 13.3 % (11.5-14.0); SEGMENTED NEUTROPHILS % (AUTO) 82.7 % (42-78); TOTAL CELLS COUNTED % (AUTO) 100 %; WHITE BLOOD COUNT 11.8 10^3/uL (4.0-10.5)
--- NOTE | 2020-03-26 02:25 | RADIOLOGY REPORT (SQ) ---
CLINICAL INDICATION: chest pain/chills. TECHNIQUE: A single portable AP view was obtained of the chest at 0204 hours. COMPARISON: None. FINDINGS: The cardiomediastinal silhouette is normal. The lungs are grossly clear. No evidence of effusion or pneumothorax. The visualized bones are unremarkable. IMPRESSION: No evidence of active intrathoracic disease.
[2020-03-26 02:27] LABS: ALBUMIN 4.3 g/dL (3.5-5.0); ALKALINE PHOSPHATASE 78 U/L (38-126); ANION GAP 9 (5-19); ASPARTATE AMINO TRANSFERASE 26 U/L (14-36); BILIRUBIN,TOTAL 0.7 mg/dL (0.2-1.3); BLOOD UREA NITROGEN 9 mg/dL (7-20); CALCIUM 9.1 mg/dL (8.4-10.2); CARBON DIOXIDE 23 mmol/L (22-30); CHLORIDE 105 mmol/L (98-107); GLUCOSE 123 mg/dL (75-110); POTASSIUM 4.2 mmol/L (3.6-5.0); TOTAL PROTEIN 7.6 g/dL (6.3-8.2)
[2020-03-26 03:12] LABS: APPEARANCE,URINE CLEAR; BILIRUBIN,URINE NEGATIVE (NEGATIVE); COLOR,URINE YELLOW; GLUCOSE, URINE NEGATIVE (NEGATIVE); KETONES,URINE NEGATIVE (NEGATIVE); LEUKOCYTE ESTERASE,URINE NEGATIVE (NEGATIVE); NITRITE,URINE NEGATIVE (NEGATIVE); PROTEIN,URINE NEGATIVE (NEGATIVE); URINE SPECIFIC GRAVITY 1.011; UROBILINOGEN,URINE NEGATIVE mg/dL (<2.0)
--- NOTE | 2020-03-26 04:47 | RADIOLOGY REPORT (SQ) ---
EXAM: US , Transvaginal EXAM DATE/TIME: 03/26/2020 4:06 AM CLINICAL HISTORY: The patient is 35 years old and is Female; LLQ PAIN, + SERUM HCG TECHNIQUE: Real-time transvaginal obstetrical ultrasound of the maternal pelvis and a first trimester with image documentation. Transvaginal imaging was used for better evaluation of the fetus and adnexa. COMPARISON: Pelvic ultrasound from 09/26/2019 FINDINGS: GESTATION: No obvious intrauterine . UTERUS/CERVIX: The uterus measures 10.3 x 5.4 x 6.5 cm. No myometrial mass visualized. The endometrial stripe measures up to 2.6 cm. The cervix is unremarkable. OVARIES: The right ovary measures 4.1 x 2.3 x 2.1 cm. Corpus luteal cyst visualized in the right ovary, measuring 1.9 x 1.8 x 1.5 cm. The left ovary measures 2.4 x 1.5 x 1.2 cm and is unremarkable. Arterial and venous blood flow is demonstrated in bilateral ovaries. No obvious adnexal mass. FREE FLUID: Small amount of free fluid in the posterior cul-de-sac. IMPRESSION: 1. No intrauterine gestation identified. The differential includes very early intrauterine , spontaneous , as well as non-visualized ectopic . Follow-up ultrasound and correlation with serial beta HCG levels is recommended for further evaluation. 2. Small amount of free fluid in the pelvis. 3. Probable corpus luteal cyst in the right ovary.
--- NOTE | 2020-03-26 05:39 | ER Document Report ---
Entered by YONNY WILKS SCRIBE 03/26/20 0154 Acting as scribe for:GERARDO MORRIS IV, MD ED GI/ - General Chief Complaint: Abdominal Cramping Stated Complaint: STOMACH PAIN,VOMITING,SHAKY Time Seen by Provider: 03/26/20 00:39 Primary Care Provider: JESS ARMIJO MD [Primary Care Provider] - Follow up as needed Mode of Arrival: Ambulatory Information source: Patient Notes: This 35 year old female patient presents to the ED today with complaints of abdominal cramping with associated nausea/vomiting since 1800 yesterday evening. Patient localizes the pain to her LLQ. She states that she he has history of colon inflammation and that she used to take medications for it, but hasn't been able to since she moved x1 year ago. She notes that she is unsure of possibility of , but states that she has gotten while on control pills in the past. Denies fever. Per ED nurse, patient travelled from [place], [place] x1 week ago. Patient is a Lao speaker, so HPI was translated using a [employer] foreign language interpreter. TRAVEL OUTSIDE OF THE [place] IN LAST 30 DAYS: No - Related Data Allergies/Adverse Reactions: Penicillins Allergy (Verified 09/06/19 13:19) Past Medical History - General Information source: Patient - Social History Smoking Status: Never Smoker Cigarette use (# per day): No Chew tobacco use (# tins/day): No Smoking Education Provided: No Frequency of alcohol use: None Drug Abuse: None Family History: Reviewed & Not Pertinent Patient has suicidal ideation: No Patient has homicidal ideation: No - Past Medical History Cardiac Medical History: Reports: Hx Hypercholesterolemia Review of Systems - Review of Systems Constitutional: See HPI. denies: Fever EENT: No symptoms reported Cardiovascular: No symptoms reported Respiratory: No symptoms reported Gastrointestinal: See HPI, Abdominal pain, Nausea, Vomiting Genitourinary: No symptoms reported Female Genitourinary: No symptoms reported Musculoskeletal: No symptoms reported Skin: No symptoms reported Hematologic/Lymphatic: No symptoms reported Neurological/Psychological: No symptoms reported -: Yes All other systems reviewed and negative Physical Exam - Vital signs Vitals: Temp Pulse Resp BP Pulse Ox 98.5 F 74 16 119/73 97 03/26/20 00:07 03/26/20 00:07 03/26/20 00:07 03/26/20 00:07 03/26/20 00:07 Interpretation: Normal - General General appearance: Alert In distress: None - HEENT Head: Normocephalic, Atraumatic Eyes: Normal Pupils: PERRL - Respiratory Respiratory status: No respiratory distress Chest status: Nontender Breath sounds: Normal Chest palpation: Normal - Cardiovascular Rhythm: Regular Heart sounds: Normal auscultation Murmur: No Friction rub: No Gallop: None auscultated - Abdominal Inspection: Normal Distension: No distension Bowel sounds: Normal Tenderness: Tender - Mild tenderness to palpation of LLQ, Other - Abdomen soft Organomegaly: No organomegaly - Back Back: Normal, Nontender - Extremities General upper extremity: Normal inspection General lower extremity: Normal inspection - Neurological Neuro grossly intact: Yes Orientation: AAOx4 Anmol Coma Scale Eye Opening: Spontaneous [place] Coma Scale Verbal: Oriented Anmol Coma Scale Motor: Obeys Commands Anmol Coma Scale Total: 15 - Psychological Associated symptoms: Normal affect, Normal mood - Skin Skin Temperature: Warm Skin Moisture: Dry Skin Color: Normal Course - Re-evaluation Re-evalutation: 03/26/20 05:33 Results of ED MSE discussed with patient using [employer] foreign language interpreter. All questions were answered prior to discharge. The importance of following up at the health department where she is usually seen was stressed to the patient given that she has abdominal pain and a positive test as well as an ultrasound that is inconclusive for the status of the . Patient expressed understanding of this while using the [employer] foreign language interpreter and was instructed to follow-up with the health department in 3 days. Emergency signs and symptoms, reasons to return to the emergency department were discussed with patient using the [employer] foreign language interpreter. All questions were answered prior to discharge using the [employer] foreign language interpreter - Vital Signs Vital signs: Temp Pulse Resp BP Pulse Ox 98.5 F 74 16 119/73 97 03/26/20 00:07 03/26/20 00:07 03/26/20 00:07 03/26/20 00:07 03/26/20 00:07 - Laboratory Result Diagrams: 03/26/20 01:34 03/26/20 01:34 Laboratory results interpreted by me: 03/26/20 03/26/20 03/26/20 01:34 01:34 01:34 WBC 11.8 H Lymph % (Auto) 11.9 L Absolute Neuts (auto) 9.7 H Seg Neutrophils % 82.7 H Sodium 136.9 L Glucose 123 H Serum HCG, Qual POSITIVE H - Diagnostic Test Radiology reviewed: Reports reviewed Discharge - Discharge Clinical Impression: Positive blood test, Acute abdominal pain in left lower quadrant Condition: Stable Disposition: HOME, SELF-CARE Additional Instructions: Return to the Emergency Department without delay if any worse. HOME CARE INSTRUCTIONS & INFORMATION: Thank you for choosing us for your medical needs. We hope you're satisfied with the care you received. After you leave, you must properly care for your problem and, at the same time, observe its progress. Any condition can change. Some illnesses can change rapidly over hours or days. If your condition worsens, return to the Emergency Department or see your physician promptly. ABOUT YOUR X-RAYS AND EKG'S: If you had an EKG or X-rays taken, they have been read by the Emergency Physician. The X-rays and EKG's will also be read by a Radiologist or B[employer] Work[employer] within 24 hours. If discrepancies are noted, you will be notified by telephone. Please be certain the ED has a correct telephone number & address where you can be reached. Also, realize that some fractures or abnormalities do not show up on initial X-rays. If your symptoms continue, see your physician. ABOUT YOUR LABORATORY TEST: If you had laboratory tests, the results have been reviewed by the Emergency Physician. Some test results (for example cultures) may not be available for several days. You will be contacted if any test result shows you need additional treatment. Please be certain the ED has a correct telephone number and address where you can be reached. ABOUT YOUR MEDICATIONS: You will receive instructions on how to take your medicine on the prescription label you receive. Additional information may be provided by the Pharmacy. If you have questions afterwards, call the ED for clarification or further instructions. Some prescribed medications may cause drowsiness. Do not perform tasks such as driving a car or operating machinery without consulting your Pharmacist. If you feel you need a refill of pain medication, your condition will need re-evaluation. Please do not call for a refill of any medication. ABOUT YOUR SIGNATURE: Signature of this document acknowledges to followin. Understanding that you received emergency treatment and that you may be released before al medical problems are known or treated. Please be certain the ED has a correct phone number & address where you can be reached. 2. Acknowledgement that you will arrange for follow-up care as recommended. 3. Authorization for the Emergency Physician to provide information to your follow-up Physician in order to maximize your care. AT ANY TIME, IF YOUR SYMPTOMS CHANGE SIGNIFICANTLY OR WORSEN OR YOU DEVELOP NEW SYMPTOMS, RETURN TO THE EMERGENCY DEPARTMENT IMMEDIATELY FOR RE-EVALUATION. OUR GOAL IS TO PROVIDE EXCELLENT MEDICAL CARE! WE HOPE THAT WE HAVE MET YOUR EXPECTATIONS DURING YOUR EMERGENCY DEPARTMENT VISIT AND THAT YOU FEEL YOU HAVE RECEIVED EXCELLENT CARE! Abdominal Pain There are many causes of abdominal pain. Pain can mean a serious problem requiring surgery (such as appendicitis). It can also be an innocent problem that goes away on its own (such as a viral infection). Often, time must pass to determine the cause of pain. The physician does not feel that hospitalization is necessary, at present. Things may change within the next 24 hours. Call the doctor or come back for re- examination if any problems occur, such as: (1) Pain that becomes more severe, steady, or becomes concentrated in one specific area. Also, pain that is more severe with movement or coughing. (2) Vomiting that persists or becomes more frequent. (3) Blood in the vomitus, urine, or bowel movements. Blood in the stool may have a tarry or black appearance. (4) Shaking chills or fever greater than 100 degrees F. (5) The abdomen becomes more distended or swollen. (6) Bowel movements cease. (7) Failure to improve as expected. You are . care is best started as early in as possible. If you're unsure about continuing this , you should discuss this with your physician or with medical collector at [facility]. You should take only medications approved by your physician. Acetaminophen can safely be taken for minor pains. As a rule, medication for chronic conditions such as asthma or seizures can safely be continued. You should discuss with the physician every medicine you take. Any regular exercise program can be continued. Talk to your physician, however, before engaging in competitive or demanding sports. Alcohol, smoking, and "street drugs" are dangerous to your baby. Cocaine is especially dangerous. Don't use any illicit drugs! Referrals: JESS ARMIJO MD [Primary Care Provider] - Follow up as needed [facility] [NO LOCAL MD] - 03/26/20 (Call today to arrange follow-up appointment for 03/29/2020 for a blood level test and ultrasound.) Print Language: Lao I personally performed the services described in the documentation, reviewed and edited the documentation which was dictated to the scribe in my presence, and it accurately records my words and actions.
[2020-03-26 05:54] VITALS: BP 84/59
--- NOTE | 2020-03-26 06:08 | EKG REPORT ---
SEVERITY:- NORMAL ECG - SINUS RHYTHM : Confirmed by: Kendell Zheng MD 26-Mar-2020 06:06:49
== END 2020-03-26 05:54 | disposition home or self-care (01) ==
LOC: ER
DX: Z32.01 Encounter for pregnancy test, result positive (principal); R10.32 Left lower quadrant pain; R11.2 Nausea with vomiting, unspecified; R25.1 Tremor, unspecified; Z88.0 Allergy status to penicillin
CPT/HCPCS: 93005; 99284; 96361; 96374; 96375; 36415; 84702; 83690; 84703; 85025; 80053; 81001; 71045; 76817; 93976; 93010; J1885; J2405; J7030

== ENCOUNTER 2020-04-13 10:26 | Emergency (ER) | payer OTHER ==
[2020-04-13 11:09] VITALS: BP 114/64
--- NOTE | 2020-04-13 11:13 | ER Document Report ---
HPI - HPI Time Seen by Provider: 04/13/20 11:11 Onset: Just prior to arrival Onset/Duration: Sudden Pain Level: 0 Associated Symptoms: None, Other - This 35-year-old female who states she is having an allergic reaction she also states that she is Exacerbated by: Denies Relieved by: Denies - REPRODUCTIVE LMP: last month Reproductive: DENIES: : Past Medical History - General Information source: Patient - Social History Smoking Status: Never Smoker Chew tobacco use (# tins/day): No Frequency of alcohol use: None Drug Abuse: None Family History: Reviewed & Not Pertinent Patient has homicidal ideation: No - Past Medical History Cardiac Medical History: Reports: Hx Hypercholesterolemia Vertical Provider Document - CONSTITUTIONAL Agree With Documented VS: Yes - INFECTION CONTROL TRAVEL OUTSIDE OF THE [place] IN LAST 30 DAYS: No - HEENT HEENT: Atraumatic, Conjuctival Injection, Normocephalic, PERRLA - NECK Neck: Normal Inspection - RESPIRATORY Respiratory: Breath Sounds Normal, No Respiratory Distress - CARDIOVASCULAR Cardiovascular: Regular Rate, Regular Rhythm - GI/ABDOMEN Gastrointestinal: Abdomen Soft, Abdomen Non-Tender - REPRODUCTIVE Female Genitalia: Normal Inspection - BACK Back: Normal Inspection Course - Re-evaluation Re-evalutation: 04/13/20 11:12 This 35-year-old female with a pruritic rash to her generalized torso over the last several days. 04/13/20 11:12 While she is she states she got no bleeding no spotting no cramping she does have another follow-up appointment the clinic on the . - Vital Signs Vital signs: Temp Pulse Resp BP Pulse Ox 97.8 F 80 18 114/64 100 04/13/20 11:08 04/13/20 11:08 04/13/20 11:08 04/13/20 11:08 04/13/20 11:08 Discharge - Discharge Clinical Impression: Urticaria Condition: Good Disposition: HOME, SELF-CARE Instructions: Acute Urticaria ([facility]) Prescriptions: Diphenhydramine HCl [Benadryl 25 mg Capsule] 25 mg PO Q6 PRN #25 capsule PRN Reason: Referrals: JESS ARMIJO MD [Primary Care Provider] - Follow up as needed
== END 2020-04-13 11:16 | disposition home or self-care (01) ==
LOC: ER 10:26
DX: L50.9 Urticaria, unspecified (principal)
CPT/HCPCS: 99282

== ENCOUNTER → 2020-06-06 | Outpatient (CLI) | payer SELFPAY ==
--- NOTE | 2020-06-06 15:39 | RADIOLOGY REPORT (SQ) ---
EXAM DESCRIPTION: U/S OB 14+ TRNABD 1GES W/O DOP IMAGES COMPLETED DATE/TIME: 06/06/2020 3:00 pm REASON FOR STUDY: (Z34.81)ENCOUNTER FOR SUPRVSN OF NORMAL , FIRST TRIMESTER Z34.81 ENCOUNT ER FOR SUPRVSN OF NORMAL , FIRST TRIM COMPARISON: None. TECHNIQUE: Static and Dynamic grayscale imaging performed of gravid uterus using transabdominal appr oach. Additional selected color Doppler and spectral images recorded. All stored on PACS. LIMITATIONS: None. FINDINGS: FETUSES SEEN:1 EGA: 15 weeks 2 days Calculated using BPD,FL,HC,AC documented on images. Clinical dates unknown CARTER: 11/26/2020 EFW: Not calculated. Grams PERCENTILE: Not calculated. LVP: 3 x 5.2 cm. PLACENTA: Right lateral circumvallate placenta. Grade 1 PRESENTATION: Variable ANATOMY: HEART RATE: 144 beats per minute. Complete anatomical survey was not performed. MATERNAL ADNEXA: Ovaries within normal limits. CERVICAL LENGTH: 3.9 cm. Closed. OTHER: No other significant finding. IMPRESSION: Living intrauterine of 15 weeks 2 days. Circumvallate placenta. Findings as described. Complete anatomical survey was not performed. Trimester of : Second trimester - 13 weeks 1 day to 27 weeks 6 days. TECHNICAL DOCUMENTATION: JOB ID: [id number] 2010 [employer]- All Rights Reserved Reading location - IP/workstation name: [email or web address]
== END ==
LOC: RAD 14:21
PROVIDERS: ATTEND Midwife
DX: Z34.82 Encounter for supervision of other normal pregnancy, second trimester (principal); Z3A.15 15 weeks gestation of pregnancy
CPT/HCPCS: 76805

== ENCOUNTER 2020-06-07 15:40 | Emergency (ER) | payer OTHER ==
--- NOTE | 2020-06-07 16:11 | ER Document Report ---
ED General - General Chief Complaint: Urinary Problem Stated Complaint: URINARY ISSUE Time Seen by Provider: 06/07/20 15:55 Primary Care Provider: [facility] [Provider Group] - Follow up as needed Mode of Arrival: Ambulatory Information source: Patient Notes: Patient is a 35 y/o female, 15 weeks and presents for dysuria that began last night. She reports burning with urination, urgency, and frequency. She denies hematuria, fever, nausea, vomiting, abdominal pain and back pain. She reports she has had a prior UTI with her last that presented similarly. She is allergic to penicillin. TRAVEL OUTSIDE OF THE [place] IN LAST 30 DAYS: No - Related Data Allergies/Adverse Reactions: Penicillins Allergy (Verified 09/06/19 13:19) Past Medical History - General Information source: Patient - Social History Smoking Status: Never Smoker Frequency of alcohol use: None Family History: Reviewed & Not Pertinent - Past Medical History Cardiac Medical History: Reports: Hx Hypercholesterolemia Review of Systems - Review of Systems Notes: REVIEW OF SYSTEMS: CONSTITUTIONAL : Denies fever, chills, or sweats. Denies recent illness. GASTROINTESTINAL: Denies abdominal pain. Denies nausea, vomiting, or diarrhea. Denies constipation. GENITOURINARY: Positive for painful urination, burning, frequency, urgency. Denies difficulty urinating, or blood in urine. FEMALE GENITOURINARY: Denies vaginal bleeding, abnormal or irregular periods. Currently 15 weeks . ALL OTHER SYSTEMS REVIEWED AND NEGATIVE. Physical Exam - Vital signs Vitals: Temp Pulse Resp BP Pulse Ox 98.1 F 84 16 116/73 99 06/07/20 15:46 06/07/20 15:46 06/07/20 15:46 06/07/20 15:46 06/07/20 15:46 - Notes Notes: VITAL SIGNS: Within normal limits. GENERAL: No acute distress, non-toxic appearance. HEAD: Normal with no signs of head trauma. CHEST: Clear breath sounds bilaterally. No wheezes, rales, or rhonchi. CARDIAC: Regular rate and rhythm. S1 and S2, without murmurs, gallops, or rubs. ABDOMEN: Gravid abdomen. Soft with no tenderness, no masses or pulsatile masses. GASTROINTESTINAL: Bowel sounds normal. No CVA tenderness. GENITOURINARY: Normal, No tenderness NEUROLOGICAL: Alert and oriented x 3. No focal sensory or strength deficits. Speech normal. Follows commands appropriately. PSYCHIATRIC: Normal Affect, judgement and mood. SKIN: Normal appearance with no rashes or lesions. Course - Re-evaluation Re-evalutation: Patient appears non-toxic in no acute distress. UA shows moderate leukocyte esterase and 39 WBCs. Urine culture pending. Prescription for macrobid given. Laboratory 06/07/20 16:11 Urine Color YELLOW Urine Appearance SLIGHTLY-CLOUDY Urine pH 5.0 Ur Specific [place] 1.013 Urine Protein NEGATIVE Urine Glucose (UA) NEGATIVE Urine Ketones NEGATIVE Urine Blood NEGATIVE Urine Nitrite NEGATIVE Urine Bilirubin NEGATIVE Urine Urobilinogen NEGATIVE Ur Leukocyte Esterase MODERATE H Urine WBC (Auto) 39 Urine RBC (Auto) 2 U Hyaline Cast (Auto) 2 Urine Bacteria (Auto) 1+ Squamous Epi Cells Auto 7 Urine Mucus (Auto) RARE Urine Ascorbic Acid NEGATIVE - Vital Signs Vital signs: Temp Pulse Resp BP Pulse Ox 98.3 F 80 17 119/72 100 06/07/20 17:33 06/07/20 17:33 06/07/20 17:33 06/07/20 17:33 06/07/20 17:33 - Laboratory Laboratory results interpreted by me: 06/07/20 16:11 Ur Leukocyte Esterase MODERATE H Discharge - Discharge Clinical Impression: Urinary tract infection affecting Condition: Stable Disposition: HOME, SELF-CARE Additional Instructions: Urinary Tract Infection Your evaluation indicates that you have a urinary tract infection. This is due to germs growing in the bladder. This is a common problem. This infection usually responds quickly to antibiotics. Your antibiotic should be taken exactly as prescribed. Drink plenty of fluids -- three to four quarts a day. Occasionally, a bladder anesthetic will be prescribed to help stop the feeling of urgency until the antibiotic has a chance to clear the infection. This may cause your urine to be dark orange. Certain urine infections require a culture. If the doctor obtained a culture, the results will be back in two days. You should call to see if a change in treatment is needed. A repeat urinalysis after you finish treatment is often recommended. The physician will let you know if further testing is required. Call the doctor if you develop fever, chills, flank pain, inability to urinate, or blood in the urine. Take all antibiotics in their entirety even if symptoms resolve. Urine culture is pending and you will receive a call if anything abnormal. Follow up with your REGIONAL EDUCATION MANAGER in 2-3 days for a recheck. Prescriptions: Nitrofurantoin Monohyd/M-Cryst [Macrobid 100 mg Capsule] 100 mg PO BID #14 cap Referrals: [facility] [Provider Group] - Follow up as needed
[2020-06-07 16:26] LABS: APPEARANCE,URINE SLIGHTLY-CLOUDY; BILIRUBIN,URINE NEGATIVE (NEGATIVE); COLOR,URINE YELLOW; GLUCOSE, URINE NEGATIVE (NEGATIVE); KETONES,URINE NEGATIVE (NEGATIVE); LEUKOCYTE ESTERASE,URINE MODERATE (NEGATIVE); NITRITE,URINE NEGATIVE (NEGATIVE); PROTEIN,URINE NEGATIVE (NEGATIVE); URINE SPECIFIC GRAVITY 1.013; UROBILINOGEN,URINE NEGATIVE mg/dL (<2.0)
[2020-06-07 17:38] VITALS: BP 119/72
== END 2020-06-07 17:33 | disposition home or self-care (01) ==
LOC: ER 15:40
DX: O23.42 Unspecified infection of urinary tract in pregnancy, second trimester (principal); Z3A.15 15 weeks gestation of pregnancy; Z88.0 Allergy status to penicillin
CPT/HCPCS: 81001; 87086; 87088; 87186; 99283

== ENCOUNTER → 2020-09-10 | Outpatient (CLI) | payer SELFPAY ==
--- NOTE | 2020-09-10 15:54 | RADIOLOGY REPORT (SQ) ---
EXAM DESCRIPTION: U/S OB 14+ TRNABD 1GES W/O DOP IMAGES COMPLETED DATE/TIME: 09/10/2020 3:40 pm REASON FOR STUDY: (Z34.83)ENCOUNTER FOR SUPRVSN OF NORMAL , THIRD TRIMESTER Z34.83 ENCOUNT ER FOR SUPRVSN OF NORMAL , THIRD TRIM COMPARISON: 06/06/2020 TECHNIQUE: Static and Dynamic grayscale imaging performed of gravid uterus using transabdominal appr oach. Additional selected color Doppler and spectral images recorded. All stored on PACS. LIMITATIONS: None. FINDINGS: FETUSES SEEN:1 EGA: 30 weeks 1 day Calculated using BPD,FL,HC,AC documented on images. No significant discrepancy w ith clinical dates. CARTER: 11/18/2020 EFW: 1,490 grams PERCENTILE: 60th BRIANNA: 22.7 cm PLACENTA: Fundal grade 1 PRESENTATION: Breech ANATOMY: HEART RATE: 147 beats per minute. FOUR CHAMBER HEART: Visualized. THREE VESSEL CORD: Yes. CORD INSERTION: Visualized. KIDNEYS AND BLADDER: Visualized. Appear normal. STOMACH: Visualized. Appears normal. SPINE: Normal as visualized. BRAIN AND LATERAL VENTRICLES: Visualized. Appear normal. OTHER: No other significant finding. MATERNAL ADNEXA: Left ovary is not seen. Right ovary is unremarkable. CERVICAL LENGTH: 4.4 cm. Closed. OTHER: No other significant finding. IMPRESSION: LIVING INTRAUTERINE . ESTIMATED GESTATIONAL AGE 30 weeks 1 day NO VISUALIZED ANOMALIES. Trimester of : Third trimester - 28 weeks to delivery. TECHNICAL DOCUMENTATION: JOB ID: [id number] [employer]- All Rights Reserved Reading location - IP/workstation name: [email or web address]
== END ==
LOC: RAD 14:43
PROVIDERS: ATTEND Midwife
DX: Z34.83 Encounter for supervision of other normal pregnancy, third trimester (principal); Z3A.30 30 weeks gestation of pregnancy
CPT/HCPCS: 76805